=== PATIENT | male | born 2000 | race Hispanic/Latino ===

== ENCOUNTER 2024-09-09 08:58 | Emergency (ER) | payer MEDICAID, OTHER ==
[~2024-09-09] VITALS: Ht 172.7 cm; Wt 56.8 kg
[2024-09-09] MEDS ORDERED: ISOVUE-370 76% 100ML VIAL As Ordered ONE (11:28)
[2024-09-09 13:00] VITALS: BP 107/55; TEMP 96.9; O2SAT 97
== END 2024-09-09 13:05 | disposition home or self-care (01) ==
LOC: EDBD 08:58 → EDSEX 08:58 → M ED 08:58
DX: R06.00 Dyspnea, unspecified (principal)
CPT/HCPCS: 36415; 71045; 71275; 80047; 99284; Q9967